=== PATIENT | female | born 1945 | race Caucasian/White ===

== ENCOUNTER 2017-09-08 18:01 | Inpatient (IN) | payer MEDICARE, MEDICAID ==
[~2017-09-08] VITALS: Ht 165.1 cm; Wt 66.5 kg
[~2017-09-08 18:01] MED LIST: NORepinephrine bitartrate 8 MG in NS 250 ML BAG (32 mcg/ml) IV ONE
[2017-09-08] MEDS ORDERED: CefTRIAXone 2gm/NS 100ml IVPB 100 ML IV ONE (18:05)
[2017-09-08] MEDS ORDERED: normal saline 1000ML IV soln IV ONE (18:05)
[2017-09-08] MEDS ORDERED: tranexamic acid inj. 700 MG in normal saline 100ml IV soln 93 ML IV STA (18:07)
[2017-09-08] MEDS ORDERED: fentaNYL/NS/PF 2,500mcg/250ml 250 ML IV PRN (18:15)
[2017-09-08 18:25] LABS: ABG BASE EXCESS -0.6 mmol/L (-2.0-3.0); ABG HCO3 24.5 mmol/L (22.0-26.0); ABG OXYGEN SATURATION 99.4 % (95-98); ABG PCO2 (T) 41.8 mmHg (32.0-45.0); ABG PH (T) 7.385 (7.350-7.450); ABG PO2 (T) 330.5 mmHg (83-108); FMetHb 0.3 % (0.3-1.12); FO2Hb 99.1 % (94-100); MINUTE VOLUME 12 L/min; PEEP 5 cm H2O; RESPIRATORY RATE 15 b/min; RESPIRATORY RATE (OBSERVED) 23 b/min; TIDAL VOLUME 400 mL; TOTAL HEMOGLOBIN 11.5 G/dl (12.0-16.0)
[2017-09-08] MEDS ORDERED: midazolam 2 mg/2 ml injection ONE (18:25)
[2017-09-08] MEDS: midazolam 100mg in NS 100ml 100 ML IV PRN (18:40)
[2017-09-08] MEDS: FENTANYL-0.9 % NACL/PF 100 ML IV PRN (18:40)
[2017-09-08 18:44] LABS: INR 1.1 INR; PARTIAL THROMBOPLASTIN TIME 21 SECONDS (22-32); PROTHROMBIN TIME 11.1 SECONDS (9.0-12.0)
[2017-09-08 18:48] LABS: ALANINE AMINOTRANSFERASE 37 U/L (12-78); ALBUMIN 2.5 G/DL (3.4-5.0); ALKALINE PHOSPHATASE 92 IU/L (46-116); ANION GAP 7 (8-16); ASPARTATE AMINO TRANSFERASE 19 U/L (10-37); BILIRUBIN,TOTAL 1.2 MG/DL (0.1-1.0); BLOOD UREA NITROGEN 48 MG/DL (7-18); BUN/CREATININE RATIO 63.2 (6.6-38.0); CALCIUM 7.9 MG/DL (8.5-10.1); CHLORIDE 110 MMOL/L (99-107); CREATININE 0.76 MG/DL (0.40-0.90); GLUCOSE 140 MG/DL (70-104); POTASSIUM 5.2 MMOL/L (3.5-5.1); SODIUM 145 MMOL/L (135-145); TOTAL CARBON DIOXIDE 28.2 MMOL/L (24-32); eGFR 75 ML/MIN
[2017-09-08 18:53] LABS: BASOPHILS % (AUTO) 0.4 % (0-1); EOSINOPHILS # (AUTO) 0.1 X10'3 (0-0.9); EOSINOPHILS % (AUTO) 0.4 % (0-6); HEMATOCRIT 32.5 % (35.0-45.0); HEMOGLOBIN 10.8 g/dl (12.0-16.0); LYMPHOCYTES # (AUTO) 0.5 X10'3 (1.1-4.8); LYMPHOCYTES % (AUTO) 3.6 % (21-51); MEAN CORPUSCULAR HEMOGLOBIN 31.2 PG (27.0-31.0); MEAN CORPUSCULAR HGB CONC 33.2 % (33.0-36.5); MEAN CORPUSCULAR VOLUME 94.1 FL (78-98); MEAN PLATELET VOLUME 9.4 FL (7.4-10.4); MONOCYTES # (AUTO) 0.5 X10'3 (0-0.9); MONOCYTES % (AUTO) 4.1 % (2-12); NEUTROPHILS # (AUTO) 11.9 X10'3 (1.8-7.7); NEUTROPHILS % (AUTO) 91.5 % (42-75); PLATELET COUNT 607 X10'3 (140-440); RED BLOOD COUNT 3.45 X10'6 (4.20-5.60); RED CELL DISTRIBUTION WIDTH 15.2 % (11.5-14.5)
[2017-09-08 18:59] LABS: MAGNESIUM 1.6 MG/DL (1.5-2.4); TROPONIN I < 0.04 NG/ML (0.0-0.05)
[2017-09-08 19:10] LABS: CLARITY,URINE CLEAR (Clear); COLOR,URINE YELLOW (Yellow); GLUCOSE, URINE NEGATIVE (Neg); KETONES,URINE NEGATIVE (Neg); LEUKOCYTE ESTERASE ,URINE SMALL (Neg); NITRITES, URINE NEGATIVE (Neg); OCCULT BLOOD,URINE SMALL (Neg); PROTEIN,URINE NEGATIVE (Neg); UROBILINOGEN,URINE 0.2 E.U/dL (0.2-1.0)
[2017-09-08 19:18] LABS: UA COLLECTION TYPE FOLEY CATH
[2017-09-08 19:20] LABS: BACTERIA,URINE 4+ /HPF (Neg); MUCUS STRANDS NONE SEEN /LPF (Neg); SQUAMOUS EPITHELIAL CELL,UR NONE SEEN /LPF (FEW)
[2017-09-08] MEDS ORDERED: vancomycin/NS 1 GM ADD-VANTAGE 250 ML IV ONE (19:20)
[2017-09-08] MEDS ORDERED: CefTRIAXone/dextrose 2GM bag 50 ML IV ONE (19:42)
[2017-09-08] MEDS ORDERED: normal saline 1000ML IV soln IVB ONE (20:30)
[2017-09-08 20:34] LABS: NUCLEATED RED BLOOD CELLS 1 /100WBC (0-0); TOTAL CELLS COUNTED 100
[2017-09-08 20:35] LABS: GIANT PLATELET FEW; PLATELET ESTIMATE INCREASED
[2017-09-08] MEDS ORDERED: acetaminophen 325mg tablet PO PRN ×2 (21:00)
[2017-09-08] MEDS ORDERED: morphine 2 MG/ML inj. syringe IV PRN ×2 (21:00)
[2017-09-08] MEDS: K, MAG and/or Phos replacement - Verify level? MC SCH (21:00)
[2017-09-08] MEDS ORDERED: ondansetron/PF 4mg/2ml inj IV PRN (21:00)
[2017-09-08] MEDS ORDERED: potassium Cl 20 mEq SR tablet PO PRN ×2 (21:00)
[2017-09-08 21:14] VITALS: BP 96/43
[2017-09-08 21:29] VITALS: BP 78/37
[2017-09-08] MEDS: piperacillin/tazo 3.375gm/50ml 50 ML IV SCH (21:31)
[2017-09-08] MEDS: pantoprazole 40MG/NS 100ML BAG 100 ML IV SCH (21:31)
[2017-09-08] MEDS ORDERED: tranexamic acid inj. 700 MG in normal saline 100ml IV soln 93 ML IV ONE (21:50)
[2017-09-08] MEDS: NORepinephrine 8mg/ 250ml NS 250 ML IV SCH (21:59)
[2017-09-08 23:15] VITALS: BP 116/58
[2017-09-08 23:30] VITALS: BP 134/64
[2017-09-09] VITALS (28 sets, daily range): BP systolic 84–118; BP diastolic 41–62
[2017-09-09] MEDS: pantoprazole 40MG/NS 100ML BAG 100 ML IV SCH ×6 (00:03→23:24)
[2017-09-09] MEDS: FENTANYL-0.9 % NACL/PF 100 ML IV PRN ×3 (00:03→18:52)
[2017-09-09 01:05] LABS: ABG BASE EXCESS -1.7 mmol/L (-2.0-3.0); ABG HCO3 22.6 mmol/L (22.0-26.0); ABG OXYGEN SATURATION 97.6 % (95-98); ABG PCO2 (T) 35.7 mmHg (32.0-45.0); ABG PH (T) 7.417 (7.350-7.450); ABG PO2 (T) 105.3 mmHg (83-108); FCOHb 0.3 % (0.5-1.5); FMetHb 0.1 % (0.3-1.12); FO2Hb 97.2 % (94-100); MINUTE VOLUME 13 L/min; PATIENT TEMPERATURE 36.4; PEEP 5 cm H2O; RESPIRATORY RATE 20 b/min; RESPIRATORY RATE (OBSERVED) 30 b/min; TIDAL VOLUME 400 mL; TOTAL HEMOGLOBIN 11.4 G/dl (12.0-16.0)
[2017-09-09 01:11] LABS: OXYGEN SATURATION (MIXED VEN) 74.8 % (60-80); PO2 MIXED VENOUS (TEMP COR) 36.5 mmHg (35-46)
[2017-09-09 03:18] LABS: BASOPHILS % (AUTO) 0.3 % (0-1); EOSINOPHILS # (AUTO) 0.2 X10'3 (0-0.9); EOSINOPHILS % (AUTO) 1.8 % (0-6); HEMATOCRIT 35.7 % (35.0-45.0); HEMOGLOBIN 11.9 g/dl (12.0-16.0); LYMPHOCYTES # (AUTO) 0.7 X10'3 (1.1-4.8); LYMPHOCYTES % (AUTO) 6.4 % (21-51); MEAN CORPUSCULAR HEMOGLOBIN 30.8 PG (27.0-31.0); MEAN CORPUSCULAR HGB CONC 33.5 % (33.0-36.5); MEAN PLATELET VOLUME 9.6 FL (7.4-10.4); MONOCYTES # (AUTO) 0.4 X10'3 (0-0.9); MONOCYTES % (AUTO) 3.3 % (2-12); NEUTROPHILS # (AUTO) 9.6 X10'3 (1.8-7.7); NEUTROPHILS % (AUTO) 88.2 % (42-75); PLATELET COUNT 523 X10'3 (140-440); RED BLOOD COUNT 3.88 X10'6 (4.20-5.60); RED CELL DISTRIBUTION WIDTH 16.1 % (11.5-14.5); WHITE BLOOD COUNT 10.8 X10'3 (4.5-11.0)
[2017-09-09 03:35] LABS: ALANINE AMINOTRANSFERASE 31 U/L (12-78); ALBUMIN 2.3 G/DL (3.4-5.0); ALBUMIN/GLOBULIN RATIO 0.9 (1.1-1.5); ALKALINE PHOSPHATASE 93 IU/L (46-116); ANION GAP 9 (8-16); ASPARTATE AMINO TRANSFERASE 19 U/L (10-37); BILIRUBIN,TOTAL 1.3 MG/DL (0.1-1.0); BLOOD UREA NITROGEN 39 MG/DL (7-18); BUN/CREATININE RATIO 79.6 (6.6-38.0); CALCIUM 8.8 MG/DL (8.5-10.1); CHLORIDE 114 MMOL/L (99-107); CREATININE 0.49 MG/DL (0.40-0.90); GLUCOSE 134 MG/DL (70-104); MAGNESIUM 1.7 MG/DL (1.5-2.4); PHOSPHORUS 3.4 MG/DL (2.3-4.5); POTASSIUM 3.9 MMOL/L (3.5-5.1); SODIUM 148 MMOL/L (135-145); TOTAL CARBON DIOXIDE 25.1 MMOL/L (24-32); eGFR > 90 ML/MIN
[2017-09-09] MEDS: normal saline 1000ml 1,000 ML IV SCH ×3 (04:41→16:01)
[2017-09-09] MEDS: midazolam 100mg in NS 100ml 100 ML IV PRN ×3 (06:29→23:24)
[2017-09-09] MEDS: K, MAG and/or Phos replacement - Verify level? MC SCH (07:45)
[2017-09-09] MEDS: piperacillin/tazo 3.375gm/50ml 50 ML IV SCH ×3 (09:20→23:24)
[2017-09-09] MEDS: vancomycin/NS 1 GM ADD-VANTAGE 250 ML IV SCH ×2 (09:20→19:55)
[2017-09-09 09:50] LABS: HEMATOCRIT 37.1 % (35.0-45.0); HEMOGLOBIN 12.2 g/dl (12.0-16.0); MEAN CORPUSCULAR HEMOGLOBIN 30.4 PG (27.0-31.0); MEAN CORPUSCULAR HGB CONC 32.9 % (33.0-36.5); MEAN CORPUSCULAR VOLUME 92.4 FL (78-98); MEAN PLATELET VOLUME 9.3 FL (7.4-10.4); PLATELET COUNT 481 X10'3 (140-440); RED BLOOD COUNT 4.01 X10'6 (4.20-5.60); RED CELL DISTRIBUTION WIDTH 16.5 % (11.5-14.5); WHITE BLOOD COUNT 10.4 X10'3 (4.5-11.0)
[2017-09-09] MEDS ORDERED: normal saline 1000ml 1,000 ML IV ONE (10:45)
[2017-09-09] MEDS ORDERED: OMEP20TA5 PO (12:49)
[2017-09-09] MEDS ORDERED: ONDA4TAB9 PO (12:49)
[2017-09-09] MEDS ORDERED: MIRT7.5T11 PO (12:49)
[2017-09-09] MEDS ORDERED: QUET25TA34 PO (12:49)
[2017-09-09] MEDS ORDERED: LISI40TA4 PO (12:49)
[2017-09-09] MEDS ORDERED: DOCU-20 PO (12:49)
[2017-09-09] MEDS ORDERED: TRAM50TA2 PO (12:49)
[2017-09-09] MEDS ORDERED: BACL10TA PO (12:49)
[2017-09-09] MEDS ORDERED: GABA-532 PO (12:49)
[2017-09-09] MEDS ORDERED: INSU100V30 SQ (14:18)
[2017-09-09] MEDS ORDERED: lasix IV (14:18)
[2017-09-09] MEDS ORDERED: PROP10VI (14:18)
[2017-09-09] MEDS ORDERED: BUDE0.5A11 NEB (14:18)
[2017-09-09] MEDS ORDERED: [UNRECOGNIZED DRUG - CODE] (14:18)
[2017-09-09] MEDS ORDERED: FOLI1TAB16 PO (14:18)
[2017-09-09] MEDS ORDERED: tpn IV (14:18)
[2017-09-09] MEDS ORDERED: ENOX40SY7 SUBCUT (14:18)
[2017-09-09] MEDS ORDERED: protonix IV (14:27)
[2017-09-09] MEDS ORDERED: ONDA4TAB6 IV (14:27)
[2017-09-09] MEDS ORDERED: METO50TA16 PO (14:27)
[2017-09-09] MEDS ORDERED: MULT-227 PO (14:27)
[2017-09-09] MEDS ORDERED: METH125V13 IV (14:27)
[2017-09-09] MEDS ORDERED: IPRA3AMP IH (14:27)
[2017-09-09] MEDS ORDERED: OLAN5TAB3 PO (14:27)
[2017-09-09] MEDS ORDERED: LACTC PO (14:27)
[2017-09-09] MEDS: NORepinephrine 8mg/ 250ml NS 250 ML IV SCH (14:42)
[2017-09-09] MEDS ORDERED: non-formulary drug (Ondansetron Hcl (Zofran) 1 TAB) IV PRN (14:55)
[2017-09-09 15:15] LABS: HEMATOCRIT 35.3 % (35.0-45.0); HEMOGLOBIN 11.7 g/dl (12.0-16.0); MEAN CORPUSCULAR HEMOGLOBIN 30.6 PG (27.0-31.0); MEAN CORPUSCULAR HGB CONC 33.2 % (33.0-36.5); MEAN CORPUSCULAR VOLUME 92.4 FL (78-98); MEAN PLATELET VOLUME 9.2 FL (7.4-10.4); PLATELET COUNT 486 X10'3 (140-440); RED BLOOD COUNT 3.82 X10'6 (4.20-5.60); RED CELL DISTRIBUTION WIDTH 16.6 % (11.5-14.5); WHITE BLOOD COUNT 9.3 X10'3 (4.5-11.0)
[2017-09-09] MEDS ORDERED: ondansetron 4mg rapidly disintigrating tab PO PRN (15:55)
[2017-09-09] MEDS: hydrocortisone sod succ/PF 100mg/2ml inj. IV SCH ×2 (16:50→19:55)
[2017-09-09] MEDS ORDERED: docusate sod 100mg capsule PO SCH (20:00)
[2017-09-09] MEDS ORDERED: OLANZapine 5mg rapidly disint. tablet PO SCH (21:00)
[2017-09-09] MEDS ORDERED: OLANZAPINE 5 MG PO SCH (21:00)
[2017-09-09 22:21] LABS: ANION GAP 7 (8-16); BLOOD UREA NITROGEN 33 MG/DL (7-18); BUN/CREATININE RATIO 63.5 (6.6-38.0); CALCIUM 9.1 MG/DL (8.5-10.1); CHLORIDE 120 MMOL/L (99-107); CREATININE 0.52 MG/DL (0.40-0.90); GLUCOSE 176 MG/DL (70-104); POTASSIUM 3.8 MMOL/L (3.5-5.1); SODIUM 153 MMOL/L (135-145); eGFR > 90 ML/MIN
[2017-09-09] MEDS: sodium chloride 0.45% 1,000 ML IV SCH (23:19)
[2017-09-10] VITALS (23 sets, daily range): BP systolic 96–149; BP diastolic 44–75
[2017-09-10] MEDS: FENTANYL-0.9 % NACL/PF 100 ML IV PRN ×2 (02:08→16:33)
[2017-09-10] MEDS: hydrocortisone sod succ/PF 100mg/2ml inj. IV SCH ×4 (02:08→20:13)
[2017-09-10 03:46] LABS: BASOPHILS % (AUTO) 0.4 % (0-1); EOSINOPHILS # (AUTO) 0.1 X10'3 (0-0.9); EOSINOPHILS % (AUTO) 1.4 % (0-6); HEMATOCRIT 33.2 % (35.0-45.0); LYMPHOCYTES # (AUTO) 0.6 X10'3 (1.1-4.8); LYMPHOCYTES % (AUTO) 6.5 % (21-51); MEAN CORPUSCULAR HEMOGLOBIN 30.7 PG (27.0-31.0); MEAN CORPUSCULAR VOLUME 92.9 FL (78-98); MEAN PLATELET VOLUME 8.6 FL (7.4-10.4); MONOCYTES # (AUTO) 0.3 X10'3 (0-0.9); MONOCYTES % (AUTO) 3.8 % (2-12); NEUTROPHILS # (AUTO) 7.6 X10'3 (1.8-7.7); NEUTROPHILS % (AUTO) 87.9 % (42-75); PLATELET COUNT 455 X10'3 (140-440); RED BLOOD COUNT 3.58 X10'6 (4.20-5.60); RED CELL DISTRIBUTION WIDTH 16.7 % (11.5-14.5); WHITE BLOOD COUNT 8.7 X10'3 (4.5-11.0)
[2017-09-10 04:04] LABS: ALANINE AMINOTRANSFERASE 28 U/L (12-78); ALBUMIN/GLOBULIN RATIO 0.7 (1.1-1.5); ALKALINE PHOSPHATASE 80 IU/L (46-116); ANION GAP 6 (8-16); ASPARTATE AMINO TRANSFERASE 14 U/L (10-37); BILIRUBIN,TOTAL 0.8 MG/DL (0.1-1.0); BLOOD UREA NITROGEN 31 MG/DL (7-18); BUN/CREATININE RATIO 72.1 (6.6-38.0); CALCIUM 9.1 MG/DL (8.5-10.1); CHLORIDE 120 MMOL/L (99-107); CREATININE 0.43 MG/DL (0.40-0.90); GLUCOSE 175 MG/DL (70-104); MAGNESIUM 1.8 MG/DL (1.5-2.4); PHOSPHORUS 3.3 MG/DL (2.3-4.5); POTASSIUM 3.4 MMOL/L (3.5-5.1); SODIUM 152 MMOL/L (135-145); TOTAL CARBON DIOXIDE 25.9 MMOL/L (24-32); TOTAL PROTEIN 4.9 G/DL (6.4-8.2); eGFR > 90 ML/MIN
[2017-09-10 04:11] LABS: ABG OXYGEN SATURATION 95.4 % (95-98); ABG PCO2 (T) 34.9 mmHg (32.0-45.0); ABG PH (T) 7.417 (7.350-7.450); ABG PO2 (T) 79.6 mmHg (83-108); FCOHb 0.3 % (0.5-1.5); FMetHb 0.1 % (0.3-1.12); MINUTE VOLUME 9 L/min; PEEP 5 cm H2O; RESPIRATORY RATE 15 b/min; RESPIRATORY RATE (OBSERVED) 20 b/min; TIDAL VOLUME 464 mL; TOTAL HEMOGLOBIN 12.1 G/dl (12.0-16.0)
[2017-09-10] MEDS: pantoprazole 40MG/NS 100ML BAG 100 ML IV SCH ×4 (05:40→20:13)
[2017-09-10] MEDS: sodium chloride 0.45% 1,000 ML IV SCH ×3 (05:43→18:08)
[2017-09-10] MEDS: K, MAG and/or Phos replacement - Verify level? MC SCH (07:18)
[2017-09-10] MEDS ORDERED: non-formulary drug (Lactobacillus Acidophilus (ACIDOPHILUS capsule) 1 CAP) PO SCH (08:00)
[2017-09-10] MEDS ORDERED: MULTIVITAMINS PO SCH (08:00)
[2017-09-10] MEDS: vancomycin/NS 1 GM ADD-VANTAGE 250 ML IV SCH ×2 (08:19→20:12)
[2017-09-10] MEDS: multivitamins, therapeutics tablet PO SCH (08:19)
[2017-09-10] MEDS: lactobacillus rhamnosus 10,000 MMU CELLS/CAPSULE PO SCH (08:19)
[2017-09-10] MEDS: folic acid 1mg tablet PO SCH (08:19)
[2017-09-10] MEDS: docusate sodium 100mg/10ml UD cup PO SCH ×2 (08:19→20:13)
[2017-09-10 09:29] LABS: HEMATOCRIT 32.9 % (35.0-45.0); HEMOGLOBIN 10.9 g/dl (12.0-16.0); MEAN CORPUSCULAR HEMOGLOBIN 30.6 PG (27.0-31.0); MEAN CORPUSCULAR HGB CONC 33.2 % (33.0-36.5); MEAN CORPUSCULAR VOLUME 92.2 FL (78-98); MEAN PLATELET VOLUME 8.8 FL (7.4-10.4); PLATELET COUNT 446 X10'3 (140-440); RED BLOOD COUNT 3.57 X10'6 (4.20-5.60); RED CELL DISTRIBUTION WIDTH 16.7 % (11.5-14.5); WHITE BLOOD COUNT 7.3 X10'3 (4.5-11.0)
[2017-09-10] MEDS: potassium Cl 40MEQ/250ML bag 250 ML IV SCH (09:51)
[2017-09-10] MEDS: OLANZapine 2.5MG tablet PO SCH ×3 (09:51→20:13)
[2017-09-10] MEDS ORDERED: diatrozoate meglu/diatrozoate sod (37% iodine) 120ML oral solution PO ONE (10:30)
[2017-09-10] MEDS ORDERED: diatr meglu/diatrizoate 30ml oral sol.-(3 dose) bottle PO ONE (10:45)
[2017-09-10 10:49] LABS: C DIFF ANTIGEN NEGATIVE (NEGATIVE); C DIFF SPECIMEN=DIARRHEA? ACCEPTABLE; C DIFFICILE TOXINS A&B NEGATIVE (Neg)
[2017-09-10] MEDS: piperacillin/tazo 3.375gm/50ml 50 ML IV SCH ×2 (11:04→16:32)
[2017-09-10] MEDS ORDERED: VANCOMYCIN LEVEL IV NR (19:30)
[2017-09-11] VITALS (24 sets, daily range): BP systolic 93–162; BP diastolic 46–82
[2017-09-11] MEDS: piperacillin/tazo 3.375gm/50ml 50 ML IV SCH ×3 (00:21→16:00)
[2017-09-11] MEDS: hydrocortisone sod succ/PF 100mg/2ml inj. IV SCH ×4 (02:27→20:31)
[2017-09-11] MEDS: sodium chloride 0.45% 1,000 ML IV SCH ×3 (02:27→22:44)
[2017-09-11] MEDS: pantoprazole 40MG/NS 100ML BAG 100 ML IV SCH ×5 (02:27→20:32)
[2017-09-11] MEDS: FENTANYL-0.9 % NACL/PF 100 ML IV PRN ×3 (02:28→16:47)
[2017-09-11 02:46] LABS: BASOPHILS # (AUTO) 0.1 X10'3 (0-0.2); BASOPHILS % (AUTO) 0.9 % (0-1); EOSINOPHILS % (AUTO) 0 % (0-6); HEMATOCRIT 31.1 % (35.0-45.0); HEMOGLOBIN 10.2 g/dl (12.0-16.0); LYMPHOCYTES # (AUTO) 0.6 X10'3 (1.1-4.8); LYMPHOCYTES % (AUTO) 8.7 % (21-51); MEAN CORPUSCULAR HEMOGLOBIN 30.4 PG (27.0-31.0); MEAN CORPUSCULAR HGB CONC 32.7 % (33.0-36.5); MEAN CORPUSCULAR VOLUME 93.1 FL (78-98); MEAN PLATELET VOLUME 8.8 FL (7.4-10.4); MONOCYTES # (AUTO) 0.3 X10'3 (0-0.9); MONOCYTES % (AUTO) 5.3 % (2-12); NEUTROPHILS # (AUTO) 5.4 X10'3 (1.8-7.7); NEUTROPHILS % (AUTO) 85.1 % (42-75); PLATELET COUNT 394 X10'3 (140-440); RED BLOOD COUNT 3.35 X10'6 (4.20-5.60); RED CELL DISTRIBUTION WIDTH 15.7 % (11.5-14.5); WHITE BLOOD COUNT 6.4 X10'3 (4.5-11.0)
[2017-09-11 02:56] LABS: ABG BASE EXCESS -2.3 mmol/L (-2.0-3.0); ABG HCO3 20.4 mmol/L (22.0-26.0); ABG OXYGEN SATURATION 96.9 % (95-98); ABG PCO2 (T) 27.2 mmHg (32.0-45.0); FCOHb 0.3 % (0.5-1.5); FMetHb 0.3 % (0.3-1.12); FO2Hb 96.3 % (94-100); MINUTE VOLUME 9 L/min; PATIENT TEMPERATURE 36.2; PEEP 5 cm H2O; RESPIRATORY RATE 15 b/min; RESPIRATORY RATE (OBSERVED) 15 b/min; TIDAL VOLUME 542 mL; TOTAL HEMOGLOBIN 10.2 G/dl (12.0-16.0)
[2017-09-11 03:03] LABS: ALANINE AMINOTRANSFERASE 21 U/L (12-78); ALBUMIN 1.7 G/DL (3.4-5.0); ALBUMIN/GLOBULIN RATIO 0.6 (1.1-1.5); ALKALINE PHOSPHATASE 68 IU/L (46-116); ANION GAP 8 (8-16); ASPARTATE AMINO TRANSFERASE 13 U/L (10-37); BILIRUBIN,TOTAL 0.7 MG/DL (0.1-1.0); BLOOD UREA NITROGEN 30 MG/DL (7-18); BUN/CREATININE RATIO 78.9 (6.6-38.0); CHLORIDE 118 MMOL/L (99-107); CREATININE 0.38 MG/DL (0.40-0.90); GLUCOSE 149 MG/DL (70-104); MAGNESIUM 1.7 MG/DL (1.5-2.4); POTASSIUM 3.2 MMOL/L (3.5-5.1); PREALBUMIN 11.7 MG/DL (19-36); SODIUM 150 MMOL/L (135-145); TOTAL CARBON DIOXIDE 24.3 MMOL/L (24-32); TOTAL PROTEIN 4.4 G/DL (6.4-8.2); eGFR > 90 ML/MIN
[2017-09-11] MEDS: vancomycin/NS 1 GM ADD-VANTAGE 250 ML IV SCH (08:00)
[2017-09-11] MEDS: multivitamins, therapeutics tablet PO SCH (08:00)
[2017-09-11] MEDS: OLANZapine 2.5MG tablet PO SCH ×3 (08:00→20:43)
[2017-09-11] MEDS: K, MAG and/or Phos replacement - Verify level? MC SCH (08:00)
[2017-09-11] MEDS: docusate sodium 100mg/10ml UD cup PO SCH ×2 (08:00→20:00)
[2017-09-11] MEDS: lactobacillus rhamnosus 10,000 MMU CELLS/CAPSULE PO SCH (08:01)
[2017-09-11] MEDS: folic acid 1mg tablet PO SCH (08:01)
[2017-09-11 11:45] LABS: OXYGEN SATURATION (MIXED VEN) 89.1 % (60-80)
[2017-09-11] MEDS: vancomycin inj 1,250 MG in normal saline 250ml IV soln 250 ML IV SCH (12:00)
[2017-09-11] MEDS: midazolam 100mg in NS 100ml 100 ML IV PRN ×2 (12:01→20:31)
[2017-09-11] MEDS: ipratropium/albuterol 3ml nebule NEB SCH ×3 (16:00→22:56)
[2017-09-11 20:10] LABS: ABG BASE EXCESS -4.7 mmol/L (-2.0-3.0); ABG HCO3 20.4 mmol/L (22.0-26.0); ABG OXYGEN SATURATION 98.1 % (95-98); ABG PH (T) 7.348 (7.350-7.450); FCOHb 0.3 % (0.5-1.5); FMetHb 0.1 % (0.3-1.12); FO2Hb 97.7 % (94-100); MINUTE VOLUME 14 L/min; PEEP 5 cm H2O; RESPIRATORY RATE (OBSERVED) 48 b/min; TOTAL HEMOGLOBIN 12.6 G/dl (12.0-16.0)
[2017-09-11] MEDS: diatr meglu/diatrizoate 30ml oral sol.-(3 dose) bottle PO SCH (20:43)
[2017-09-11] MEDS ORDERED: potassium Cl 40MEQ/250ML bag 250 ML IV ONE (22:31)
[2017-09-11] MEDS: potassium Cl 40MEQ/250ML bag 250 ML IV SCH (22:42)
[2017-09-12] VITALS (24 sets, daily range): BP systolic 125–180; BP diastolic 59–87
[2017-09-12] MEDS: hydrocortisone sod succ/PF 100mg/2ml inj. IV SCH ×4 (01:57→20:44)
[2017-09-12] MEDS: piperacillin/tazo 3.375gm/50ml 50 ML IV SCH ×3 (01:58→16:18)
[2017-09-12] MEDS: pantoprazole 40MG/NS 100ML BAG 100 ML IV SCH ×5 (01:58→20:45)
[2017-09-12] MEDS: ipratropium/albuterol 3ml nebule NEB SCH ×6 (03:16→23:09)
[2017-09-12 04:25] LABS: BASOPHILS % (AUTO) 0.2 % (0-1); EOSINOPHILS # (AUTO) 0.1 X10'3 (0-0.9); EOSINOPHILS % (AUTO) 1.3 % (0-6); HEMATOCRIT 35.2 % (35.0-45.0); HEMOGLOBIN 11.6 g/dl (12.0-16.0); LYMPHOCYTES # (AUTO) 0.4 X10'3 (1.1-4.8); LYMPHOCYTES % (AUTO) 5.9 % (21-51); MEAN CORPUSCULAR HEMOGLOBIN 30.4 PG (27.0-31.0); MEAN CORPUSCULAR HGB CONC 32.9 % (33.0-36.5); MEAN CORPUSCULAR VOLUME 92.6 FL (78-98); MEAN PLATELET VOLUME 8.3 FL (7.4-10.4); MONOCYTES # (AUTO) 0.2 X10'3 (0-0.9); MONOCYTES % (AUTO) 3.2 % (2-12); NEUTROPHILS # (AUTO) 5.6 X10'3 (1.8-7.7); NEUTROPHILS % (AUTO) 89.4 % (42-75); PLATELET COUNT 392 X10'3 (140-440); RED CELL DISTRIBUTION WIDTH 15.9 % (11.5-14.5); WHITE BLOOD COUNT 6.3 X10'3 (4.5-11.0)
[2017-09-12 04:41] LABS: ALANINE AMINOTRANSFERASE 24 U/L (12-78); ALBUMIN 1.9 G/DL (3.4-5.0); ALBUMIN/GLOBULIN RATIO 0.6 (1.1-1.5); ALKALINE PHOSPHATASE 77 IU/L (46-116); ANION GAP 8 (8-16); ASPARTATE AMINO TRANSFERASE 16 U/L (10-37); BILIRUBIN,TOTAL 0.8 MG/DL (0.1-1.0); BLOOD UREA NITROGEN 24 MG/DL (7-18); CALCIUM 9.1 MG/DL (8.5-10.1); CHLORIDE 114 MMOL/L (99-107); GLUCOSE 130 MG/DL (70-104); MAGNESIUM 1.6 MG/DL (1.5-2.4); PHOSPHORUS 3.6 MG/DL (2.3-4.5); POTASSIUM 3.7 MMOL/L (3.5-5.1); SODIUM 146 MMOL/L (135-145); TOTAL CARBON DIOXIDE 24.4 MMOL/L (24-32); eGFR > 90 ML/MIN
[2017-09-12] MEDS: midazolam 100mg in NS 100ml 100 ML IV PRN (05:04)
[2017-09-12 05:16] LABS: ABG HCO3 21.6 mmol/L (22.0-26.0); ABG OXYGEN SATURATION 96.6 % (95-98); ABG PCO2 (T) 32.9 mmHg (32.0-45.0); ABG PH (T) 7.434 (7.350-7.450); ABG PO2 (T) 90.8 mmHg (83-108); FCOHb 0.3 % (0.5-1.5); FMetHb 0.2 % (0.3-1.12); FO2Hb 96.1 % (94-100); MINUTE VOLUME 8 L/min; PATIENT TEMPERATURE 36.9; PEEP 5 cm H2O; RESPIRATORY RATE 10 b/min; RESPIRATORY RATE (OBSERVED) 17 b/min; TOTAL HEMOGLOBIN 11.6 G/dl (12.0-16.0)
[2017-09-12] MEDS: sodium chloride 0.45% 1,000 ML IV SCH ×2 (06:55→16:16)
[2017-09-12] MEDS: diatr meglu/diatrizoate 30ml oral sol.-(3 dose) bottle PO SCH ×2 (07:00→21:00)
[2017-09-12] MEDS: docusate sodium 100mg/10ml UD cup PO SCH ×2 (08:00→20:00)
[2017-09-12] MEDS: multivitamins, therapeutics tablet PO SCH (08:00)
[2017-09-12] MEDS: lactobacillus rhamnosus 10,000 MMU CELLS/CAPSULE PO SCH (08:00)
[2017-09-12] MEDS: OLANZapine 2.5MG tablet PO SCH ×3 (08:00→20:45)
[2017-09-12] MEDS: folic acid 1mg tablet PO SCH (08:00)
[2017-09-12] MEDS: K, MAG and/or Phos replacement - Verify level? MC SCH (08:00)
[2017-09-12] MEDS: vancomycin inj 1,250 MG in normal saline 250ml IV soln 250 ML IV SCH ×2 (09:00→20:45)
[2017-09-12] MEDS: FENTANYL-0.9 % NACL/PF 100 ML IV PRN ×2 (09:45→23:00)
[2017-09-12] MEDS ORDERED: amiodarone/D5 360MG/200ML BAG 200 ML IV SCH (10:59)
[2017-09-12] MEDS ORDERED: amiodarone 150mg/dext, iso-os 100 ML IV ONE (11:00)
[2017-09-12] MEDS: LORazepam 2 mg/ml vial IV PRN (17:38)
[2017-09-12] MEDS: amiodarone/D5 450MG/250ML BAG 250 ML IV SCH (19:58)
[2017-09-13] VITALS (27 sets, daily range): BP systolic 122–190; BP diastolic 60–108
[2017-09-13] MEDS: hydrocortisone sod succ/PF 100mg/2ml inj. IV SCH ×4 (01:36→20:10)
[2017-09-13] MEDS: piperacillin/tazo 3.375gm/50ml 50 ML IV SCH ×4 (01:36→20:10)
[2017-09-13] MEDS: sodium chloride 0.45% 1,000 ML IV SCH ×3 (01:36→22:14)
[2017-09-13] MEDS: midazolam 100mg in NS 100ml 100 ML IV PRN ×2 (01:38→20:11)
[2017-09-13] MEDS: pantoprazole 40MG/NS 100ML BAG 100 ML IV SCH ×5 (02:34→19:35)
[2017-09-13] MEDS: ipratropium/albuterol 3ml nebule NEB SCH ×6 (03:17→22:55)
[2017-09-13 03:35] LABS: BASOPHILS % (AUTO) 0.1 % (0-1); EOSINOPHILS # (AUTO) 0.1 X10'3 (0-0.9); EOSINOPHILS % (AUTO) 0.9 % (0-6); HEMATOCRIT 32.9 % (35.0-45.0); HEMOGLOBIN 10.9 g/dl (12.0-16.0); LYMPHOCYTES # (AUTO) 0.4 X10'3 (1.1-4.8); LYMPHOCYTES % (AUTO) 7.2 % (21-51); MEAN CORPUSCULAR HEMOGLOBIN 30.4 PG (27.0-31.0); MEAN CORPUSCULAR HGB CONC 33.1 % (33.0-36.5); MEAN PLATELET VOLUME 8.4 FL (7.4-10.4); MONOCYTES # (AUTO) 0.2 X10'3 (0-0.9); MONOCYTES % (AUTO) 3.6 % (2-12); NEUTROPHILS # (AUTO) 5.4 X10'3 (1.8-7.7); NEUTROPHILS % (AUTO) 88.2 % (42-75); PLATELET COUNT 323 X10'3 (140-440); RED BLOOD COUNT 3.57 X10'6 (4.20-5.60); RED CELL DISTRIBUTION WIDTH 15.6 % (11.5-14.5); WHITE BLOOD COUNT 6.2 X10'3 (4.5-11.0)
[2017-09-13 03:50] LABS: ALANINE AMINOTRANSFERASE 39 U/L (12-78); ALBUMIN 1.7 G/DL (3.4-5.0); ALBUMIN/GLOBULIN RATIO 0.6 (1.1-1.5); ALKALINE PHOSPHATASE 67 IU/L (46-116); ANION GAP 6 (8-16); ASPARTATE AMINO TRANSFERASE 28 U/L (10-37); BILIRUBIN,TOTAL 0.7 MG/DL (0.1-1.0); CALCIUM 8.7 MG/DL (8.5-10.1); CHLORIDE 113 MMOL/L (99-107); CREATININE 0.34 MG/DL (0.40-0.90); GLUCOSE 121 MG/DL (70-104); MAGNESIUM 1.6 MG/DL (1.5-2.4); PHOSPHORUS 3.3 MG/DL (2.3-4.5); SODIUM 146 MMOL/L (135-145); TOTAL CARBON DIOXIDE 27.2 MMOL/L (24-32); TOTAL PROTEIN 4.5 G/DL (6.4-8.2); eGFR > 90 ML/MIN
[2017-09-13 03:56] LABS: BLOOD UREA NITROGEN 20 MG/DL (7-18); BUN/CREATININE RATIO 58.8 (6.6-38.0)
[2017-09-13] MEDS ORDERED: potassium Cl 40MEQ/250ML bag 250 ML IV ONE (04:03)
[2017-09-13 04:11] LABS: ABG HCO3 23.1 mmol/L (22.0-26.0); ABG PCO2 (T) 31.9 mmHg (32.0-45.0); ABG PH (T) 7.476 (7.350-7.450); ABG PO2 (T) 76.1 mmHg (83-108); FCOHb 0.3 % (0.5-1.5); FO2Hb 95.7 % (94-100); MINUTE VOLUME 14 L/min; PATIENT TEMPERATURE 36.4; PEEP 5 cm H2O; RESPIRATORY RATE 14 b/min; RESPIRATORY RATE (OBSERVED) 26 b/min; TIDAL VOLUME 450 mL; TOTAL HEMOGLOBIN 12.5 G/dl (12.0-16.0)
[2017-09-13] MEDS ORDERED: VANCOMYCIN LEVEL IV NR (07:30)
[2017-09-13] MEDS: FENTANYL-0.9 % NACL/PF 100 ML IV PRN ×2 (07:58→17:05)
[2017-09-13] MEDS: docusate sodium 100mg/10ml UD cup PO SCH ×2 (08:00→20:00)
[2017-09-13] MEDS: OLANZapine 2.5MG tablet PO SCH ×3 (08:00→21:00)
[2017-09-13] MEDS: multivitamins, therapeutics tablet PO SCH (08:00)
[2017-09-13] MEDS: K, MAG and/or Phos replacement - Verify level? MC SCH (08:00)
[2017-09-13] MEDS: folic acid 1mg tablet PO SCH (08:00)
[2017-09-13] MEDS: lactobacillus rhamnosus 10,000 MMU CELLS/CAPSULE PO SCH (08:00)
[2017-09-13] MEDS ORDERED: ringers solution, lacted 1,000 ML IV SCH (09:43)
[2017-09-13] MEDS ORDERED: ondansetron/PF 4mg/2ml inj IV PRN (09:45)
[2017-09-13] MEDS ORDERED: sevoflurane 250ml liquid IH ONE (09:50)
[2017-09-13] MEDS: LORazepam 2 mg/ml vial IV PRN (12:49)
[2017-09-13] MEDS ORDERED: enalaprilat dihydrate 2.5mg/2ml vial IV SCH (14:05)
[2017-09-13] MEDS: enalaprilat dihydrate 2.5mg/2ml vial IV SCH ×2 (14:29→20:10)
[2017-09-13] MEDS: furosemide 40mg/4ml inj IV SCH ×2 (14:29→16:00)
[2017-09-13] MEDS: esmolol/sodium cl bag 250 ML IV PRN (17:18)
[2017-09-13] MEDS: potassium Cl 40MEQ/250ML bag 250 ML IV PRN ×2 (17:38→23:36)
[2017-09-14] VITALS (24 sets, daily range): BP systolic 101–194; BP diastolic 48–103
[2017-09-14] MEDS: furosemide 40mg/4ml inj IV SCH ×3 (00:08→15:19)
[2017-09-14] MEDS: pantoprazole 40MG/NS 100ML BAG 100 ML IV SCH ×5 (00:12→20:28)
[2017-09-14] MEDS ORDERED: hydrALAZINE 20mg/ml inj. IV ONE (00:25)
[2017-09-14] MEDS: hydrocortisone sod succ/PF 100mg/2ml inj. IV SCH ×4 (01:16→20:28)
[2017-09-14] MEDS: enalaprilat dihydrate 2.5mg/2ml vial IV SCH ×4 (01:16→20:28)
[2017-09-14] MEDS: piperacillin/tazo 3.375gm/50ml 50 ML IV SCH ×3 (01:17→15:19)
[2017-09-14] MEDS: esmolol/sodium cl bag 250 ML IV PRN (01:18)
[2017-09-14] MEDS: potassium Cl 40MEQ/250ML bag 250 ML IV PRN ×4 (02:40→20:29)
[2017-09-14] MEDS: amiodarone/D5 450MG/250ML BAG 250 ML IV SCH ×2 (02:41→18:13)
[2017-09-14] MEDS: ipratropium/albuterol 3ml nebule NEB SCH ×6 (02:47→23:18)
[2017-09-14 03:25] LABS: ABG HCO3 21.5 mmol/L (22.0-26.0); ABG OXYGEN SATURATION 92.9 % (95-98); ABG PCO2 (T) 24.4 mmHg (32.0-45.0); ABG PH (T) 7.562 (7.350-7.450); ABG PO2 (T) 57.4 mmHg (83-108); FCOHb 0.5 % (0.5-1.5); FMetHb 0.3 % (0.3-1.12); FO2Hb 92.2 % (94-100); MINUTE VOLUME 17 L/min; PATIENT TEMPERATURE 36.8; PEEP 5 cm H2O; RESPIRATORY RATE 14 b/min; RESPIRATORY RATE (OBSERVED) 34 b/min; TIDAL VOLUME 450 mL; TOTAL HEMOGLOBIN 14.6 G/dl (12.0-16.0)
[2017-09-14] MEDS: midazolam 100mg in NS 100ml 100 ML IV PRN ×3 (05:16→23:44)
[2017-09-14] MEDS: FENTANYL-0.9 % NACL/PF 100 ML IV PRN ×3 (05:17→23:44)
[2017-09-14] MEDS: multivitamins, therapeutics tablet PO SCH (06:37)
[2017-09-14] MEDS: folic acid 1mg tablet PO SCH (06:37)
[2017-09-14] MEDS: docusate sodium 100mg/10ml UD cup PO SCH ×2 (06:37→20:28)
[2017-09-14] MEDS: OLANZapine 2.5MG tablet PO SCH ×3 (06:37→20:28)
[2017-09-14] MEDS: lactobacillus rhamnosus 10,000 MMU CELLS/CAPSULE PO SCH (06:37)
[2017-09-14 07:49] LABS: BASOPHILS % (AUTO) 0 % (0-1); EOSINOPHILS # (AUTO) 0.1 X10'3 (0-0.9); EOSINOPHILS % (AUTO) 1.6 % (0-6); HEMATOCRIT 36.6 % (35.0-45.0); HEMOGLOBIN 12.1 g/dl (12.0-16.0); LYMPHOCYTES # (AUTO) 0.5 X10'3 (1.1-4.8); LYMPHOCYTES % (AUTO) 6.7 % (21-51); MEAN CORPUSCULAR HEMOGLOBIN 30.5 PG (27.0-31.0); MEAN CORPUSCULAR HGB CONC 33.1 % (33.0-36.5); MEAN CORPUSCULAR VOLUME 92.1 FL (78-98); MEAN PLATELET VOLUME 8.6 FL (7.4-10.4); MONOCYTES # (AUTO) 0.2 X10'3 (0-0.9); MONOCYTES % (AUTO) 2.4 % (2-12); NEUTROPHILS # (AUTO) 7.1 X10'3 (1.8-7.7); NEUTROPHILS % (AUTO) 89.3 % (42-75); PLATELET COUNT 346 X10'3 (140-440); RED BLOOD COUNT 3.97 X10'6 (4.20-5.60); RED CELL DISTRIBUTION WIDTH 15.2 % (11.5-14.5)
[2017-09-14] MEDS: K, MAG and/or Phos replacement - Verify level? MC SCH (08:00)
[2017-09-14 08:05] LABS: ALANINE AMINOTRANSFERASE 45 U/L (12-78); ALBUMIN 1.8 G/DL (3.4-5.0); ALBUMIN/GLOBULIN RATIO 0.6 (1.1-1.5); ALKALINE PHOSPHATASE 72 IU/L (46-116); ANION GAP 7 (8-16); ASPARTATE AMINO TRANSFERASE 30 U/L (10-37); BILIRUBIN,TOTAL 0.7 MG/DL (0.1-1.0); BLOOD UREA NITROGEN 17 MG/DL (7-18); CALCIUM 8.9 MG/DL (8.5-10.1); CHLORIDE 113 MMOL/L (99-107); GLUCOSE 146 MG/DL (70-104); MAGNESIUM 1.5 MG/DL (1.5-2.4); PHOSPHORUS 2.8 MG/DL (2.3-4.5); SODIUM 147 MMOL/L (135-145); TOTAL CARBON DIOXIDE 26.9 MMOL/L (24-32); TOTAL PROTEIN 4.8 G/DL (6.4-8.2); eGFR > 90 ML/MIN
[2017-09-14] MEDS: sodium chloride 0.45% 1,000 ML IV SCH (10:02)
[2017-09-14] MEDS: albumin (human) 25% 100 ML IV solution IV SCH (15:21)
[2017-09-15] VITALS (23 sets, daily range): BP systolic 116–198; BP diastolic 58–98
[2017-09-15] MEDS: furosemide 40mg/4ml inj IV SCH (00:02)
[2017-09-15] MEDS: albumin (human) 25% 100 ML IV solution IV SCH ×4 (00:02→23:26)
[2017-09-15] MEDS: enalaprilat dihydrate 2.5mg/2ml vial IV SCH ×4 (02:53→20:50)
[2017-09-15] MEDS: pantoprazole 40MG/NS 100ML BAG 100 ML IV SCH (02:53)
[2017-09-15] MEDS: hydrocortisone sod succ/PF 100mg/2ml inj. IV SCH (02:53)
[2017-09-15 03:02] LABS: BASOPHILS % (AUTO) 0.3 % (0-1); EOSINOPHILS # (AUTO) 0.1 X10'3 (0-0.9); HEMATOCRIT 30.9 % (35.0-45.0); HEMOGLOBIN 10.3 g/dl (12.0-16.0); LYMPHOCYTES # (AUTO) 0.5 X10'3 (1.1-4.8); LYMPHOCYTES % (AUTO) 5.8 % (21-51); MEAN CORPUSCULAR HEMOGLOBIN 30.6 PG (27.0-31.0); MEAN CORPUSCULAR HGB CONC 33.2 % (33.0-36.5); MEAN CORPUSCULAR VOLUME 92.1 FL (78-98); MEAN PLATELET VOLUME 8.9 FL (7.4-10.4); MONOCYTES # (AUTO) 0.2 X10'3 (0-0.9); MONOCYTES % (AUTO) 2.6 % (2-12); NEUTROPHILS # (AUTO) 7.7 X10'3 (1.8-7.7); NEUTROPHILS % (AUTO) 90.3 % (42-75); PLATELET COUNT 270 X10'3 (140-440); RED BLOOD COUNT 3.36 X10'6 (4.20-5.60); RED CELL DISTRIBUTION WIDTH 15.2 % (11.5-14.5); WHITE BLOOD COUNT 8.6 X10'3 (4.5-11.0)
[2017-09-15 03:16] LABS: PLATELET ESTIMATE NORMAL
[2017-09-15 03:17] LABS: ANISOCYTOSIS 1+
[2017-09-15 03:22] LABS: ALANINE AMINOTRANSFERASE 48 U/L (12-78); ALBUMIN 2.9 G/DL (3.4-5.0); ALBUMIN/GLOBULIN RATIO 1.1 (1.1-1.5); ALKALINE PHOSPHATASE 63 IU/L (46-116); ANION GAP 7 (8-16); ASPARTATE AMINO TRANSFERASE 24 U/L (10-37); BILIRUBIN,TOTAL 0.6 MG/DL (0.1-1.0); BLOOD UREA NITROGEN 18 MG/DL (7-18); BUN/CREATININE RATIO 28.1 (6.6-38.0); CALCIUM 9.3 MG/DL (8.5-10.1); CHLORIDE 113 MMOL/L (99-107); CREATININE 0.64 MG/DL (0.40-0.90); GLUCOSE 173 MG/DL (70-104); MAGNESIUM 1.6 MG/DL (1.5-2.4); PHOSPHORUS 2.9 MG/DL (2.3-4.5); SODIUM 151 MMOL/L (135-145); TOTAL CARBON DIOXIDE 31.4 MMOL/L (24-32); TOTAL PROTEIN 5.5 G/DL (6.4-8.2); eGFR > 90 ML/MIN
[2017-09-15 03:23] LABS: POTASSIUM 2.8 MMOL/L (3.5-5.1)
[2017-09-15] MEDS: ipratropium/albuterol 3ml nebule NEB SCH ×7 (03:23→23:05)
[2017-09-15 03:45] LABS: ABG BASE EXCESS 3.6 mmol/L (-2.0-3.0); ABG HCO3 26.2 mmol/L (22.0-26.0); ABG OXYGEN SATURATION 95.2 % (95-98); ABG PCO2 (T) 32.3 mmHg (32.0-45.0); ABG PH (T) 7.527 (7.350-7.450); ALLEN'S TEST Positive; FCOHb 0.3 % (0.5-1.5); FO2Hb 94.9 % (94-100); MINUTE VOLUME 15 L/min; PATIENT TEMPERATURE 36.7; PEEP 5 cm H2O; RESPIRATORY RATE 14 b/min; RESPIRATORY RATE (OBSERVED) 24 b/min; TIDAL VOLUME 450 mL; TOTAL HEMOGLOBIN 11.2 G/dl (12.0-16.0)
[2017-09-15] MEDS ORDERED: potassium Cl 40MEQ/250ML bag 500 ML IV ONE (03:58)
[2017-09-15] MEDS: potassium Cl 40MEQ/250ML bag 250 ML IV SCH (06:07)
[2017-09-15] MEDS: Potassium Cl inj 40 MEQ in sodium chloride 0.45% 980 ML IV SCH ×2 (07:59→16:06)
[2017-09-15] MEDS ORDERED: cefTRIAXone 1g/NS 100ml IVPB 100 ML IV ONE (08:00)
[2017-09-15] MEDS: K, MAG and/or Phos replacement - Verify level? MC SCH (08:00)
[2017-09-15] MEDS ORDERED: pantoprazole 40MG/NS 100ML BAG 100 ML IV SCH (08:00)
[2017-09-15] MEDS: multivitamins, therapeutics tablet PO SCH (08:01)
[2017-09-15] MEDS: LACTOBACILLUS RHAMNOSUS GG 15 billion unit sprinkle caps PO SCH (08:01)
[2017-09-15] MEDS: docusate sodium 100mg/10ml UD cup PO SCH ×2 (08:01→20:00)
[2017-09-15] MEDS: folic acid 1mg tablet PO SCH (08:01)
[2017-09-15] MEDS: amiodarone/D5 450MG/250ML BAG 250 ML IV SCH (08:05)
[2017-09-15] MEDS: midazolam 100mg in NS 100ml 100 ML IV PRN (09:49)
[2017-09-15] MEDS: FENTANYL-0.9 % NACL/PF 100 ML IV PRN ×3 (09:51→23:19)
[2017-09-15] MEDS: pantoprazole 40 MG vial IV SCH (12:45)
[2017-09-15] MEDS: esmolol/sodium cl bag 250 ML IV PRN ×2 (15:29→16:21)
[2017-09-15] MEDS: dexmedetomidin/NS 400mcg/100ml 100 ML IV SCH (16:38)
[2017-09-15] MEDS: methylnaltrexone br 12mg/0.6ml inj***SubQ only SQ SCH (20:48)
[2017-09-15] MEDS: amiodarone 200mg tablet PO SCH (20:50)
[2017-09-16] VITALS (24 sets, daily range): BP systolic 104–186; BP diastolic 56–103
[2017-09-16] MEDS: Potassium Cl inj 40 MEQ in sodium chloride 0.45% 980 ML IV SCH ×2 (01:44→12:25)
[2017-09-16] MEDS: enalaprilat dihydrate 2.5mg/2ml vial IV SCH ×4 (01:44→20:30)
[2017-09-16 02:32] LABS: BASOPHILS % (AUTO) 0.1 % (0-1); EOSINOPHILS # (AUTO) 0.1 X10'3 (0-0.9); EOSINOPHILS % (AUTO) 1.5 % (0-6); HEMATOCRIT 28.4 % (35.0-45.0); HEMOGLOBIN 9.5 g/dl (12.0-16.0); LYMPHOCYTES # (AUTO) 0.7 X10'3 (1.1-4.8); LYMPHOCYTES % (AUTO) 7.5 % (21-51); MEAN CORPUSCULAR HEMOGLOBIN 30.8 PG (27.0-31.0); MEAN CORPUSCULAR HGB CONC 33.3 % (33.0-36.5); MEAN CORPUSCULAR VOLUME 92.6 FL (78-98); MEAN PLATELET VOLUME 9.2 FL (7.4-10.4); MONOCYTES # (AUTO) 0.2 X10'3 (0-0.9); MONOCYTES % (AUTO) 1.7 % (2-12); NEUTROPHILS # (AUTO) 8.4 X10'3 (1.8-7.7); NEUTROPHILS % (AUTO) 89.2 % (42-75); PLATELET COUNT 245 X10'3 (140-440); RED BLOOD COUNT 3.07 X10'6 (4.20-5.60); RED CELL DISTRIBUTION WIDTH 15.4 % (11.5-14.5); WHITE BLOOD COUNT 9.4 X10'3 (4.5-11.0)
[2017-09-16] MEDS: midazolam 100mg in NS 100ml 100 ML IV PRN (02:47)
[2017-09-16 02:48] LABS: ALANINE AMINOTRANSFERASE 40 U/L (12-78); ALBUMIN 3.6 G/DL (3.4-5.0); ALBUMIN/GLOBULIN RATIO 1.6 (1.1-1.5); ALKALINE PHOSPHATASE 57 IU/L (46-116); ANION GAP 6 (8-16); ASPARTATE AMINO TRANSFERASE 22 U/L (10-37); BILIRUBIN,TOTAL 0.6 MG/DL (0.1-1.0); BLOOD UREA NITROGEN 20 MG/DL (7-18); BUN/CREATININE RATIO 46.5 (6.6-38.0); CALCIUM 9.5 MG/DL (8.5-10.1); CHLORIDE 114 MMOL/L (99-107); CREATININE 0.43 MG/DL (0.40-0.90); GLUCOSE 106 MG/DL (70-104); MAGNESIUM 1.4 MG/DL (1.5-2.4); PHOSPHORUS 2.3 MG/DL (2.3-4.5); POTASSIUM 3.2 MMOL/L (3.5-5.1); SODIUM 150 MMOL/L (135-145); TOTAL CARBON DIOXIDE 30.3 MMOL/L (24-32); TOTAL PROTEIN 5.8 G/DL (6.4-8.2); eGFR > 90 ML/MIN
[2017-09-16] MEDS: ipratropium/albuterol 3ml nebule NEB SCH ×5 (03:14→19:07)
[2017-09-16 03:31] LABS: ABG BASE EXCESS 0.6 mmol/L (-2.0-3.0); ABG OXYGEN SATURATION 92.4 % (95-98); ABG PCO2 (T) 29.4 mmHg (32.0-45.0); ABG PH (T) 7.511 (7.350-7.450); ABG PO2 (T) 63.8 mmHg (83-108); ALLEN'S TEST Positive; FCOHb 0.3 % (0.5-1.5); FMetHb 0.3 % (0.3-1.12); FO2Hb 91.8 % (94-100); MINUTE VOLUME 13 L/min; PEEP 5 cm H2O; RESPIRATORY RATE 14 b/min; RESPIRATORY RATE (OBSERVED) 26 b/min; TIDAL VOLUME 450 mL; TOTAL HEMOGLOBIN 10.1 G/dl (12.0-16.0)
[2017-09-16] MEDS ORDERED: potassium Cl 40MEQ/250ML bag 250 ML IV ONE (04:55)
[2017-09-16] MEDS: LACTOBACILLUS RHAMNOSUS GG 15 billion unit sprinkle caps PO SCH (07:35)
[2017-09-16] MEDS: multivitamins, therapeutics tablet PO SCH (07:35)
[2017-09-16] MEDS: folic acid 1mg tablet PO SCH (07:35)
[2017-09-16] MEDS: amiodarone 200mg tablet PO SCH ×2 (07:35→20:30)
[2017-09-16] MEDS: pantoprazole 40 MG vial IV SCH (07:35)
[2017-09-16] MEDS: albumin (human) 25% 100 ML IV solution IV SCH (07:36)
[2017-09-16] MEDS: cefTRIAXone 1g/NS 100ml IVPB 100 ML IV SCH (07:37)
[2017-09-16] MEDS: FENTANYL-0.9 % NACL/PF 100 ML IV PRN ×3 (07:47→19:38)
[2017-09-16] MEDS: docusate sodium 100mg/10ml UD cup PO SCH ×2 (07:51→20:00)
[2017-09-16] MEDS: K, MAG and/or Phos replacement - Verify level? MC SCH (07:55)
[2017-09-16] MEDS ORDERED: dextrose 50%-water 50ml dispensing syringe IV ONE ×2 (09:35→09:36)
[2017-09-16] MEDS ORDERED: dextrose 50%-water 50ml dispensing syringe IV PRN ×2 (09:35)
[2017-09-16] MEDS: dexmedetomidin/NS 400mcg/100ml 100 ML IV SCH ×2 (10:21→19:39)
[2017-09-16] MEDS ORDERED: sodium phosphate inj. 15 MMOL in dextrose 5%-water 150 ML IV PRN (10:24)
[2017-09-16] MEDS ORDERED: sodium phosphate inj. 30 MMOL in dextrose 5%-water 250 ML IV PRN (10:24)
[2017-09-16] MEDS ORDERED: magnesium 4gm in 100ml NS 100 ML IV PRN (10:55)
[2017-09-16] MEDS: magnesium 2GM in 50ml NS 50 ML IV PRN (11:17)
[2017-09-16] MEDS: esmolol/sodium cl bag 250 ML IV PRN (16:48)
[2017-09-17] VITALS (22 sets, daily range): BP systolic 107–192; BP diastolic 61–107
[2017-09-17] MEDS: Potassium Cl inj 40 MEQ in sodium chloride 0.45% 980 ML IV SCH ×4 (00:30→21:54)
[2017-09-17] MEDS: esmolol/sodium cl bag 250 ML IV PRN ×6 (00:30→21:19)
[2017-09-17] MEDS: FENTANYL-0.9 % NACL/PF 100 ML IV PRN ×3 (00:30→19:56)
[2017-09-17] MEDS: ipratropium/albuterol 3ml nebule NEB SCH ×6 (03:34→22:26)
[2017-09-17 03:35] LABS: BASOPHILS % (AUTO) 0 % (0-1); EOSINOPHILS # (AUTO) 0.3 X10'3 (0-0.9); EOSINOPHILS % (AUTO) 1.9 % (0-6); HEMATOCRIT 32.4 % (35.0-45.0); HEMOGLOBIN 10.7 g/dl (12.0-16.0); LYMPHOCYTES # (AUTO) 0.8 X10'3 (1.1-4.8); LYMPHOCYTES % (AUTO) 4.2 % (21-51); MEAN CORPUSCULAR HEMOGLOBIN 30.7 PG (27.0-31.0); MEAN CORPUSCULAR HGB CONC 33.1 % (33.0-36.5); MEAN CORPUSCULAR VOLUME 92.7 FL (78-98); MEAN PLATELET VOLUME 9.2 FL (7.4-10.4); MONOCYTES # (AUTO) 0.1 X10'3 (0-0.9); MONOCYTES % (AUTO) 0.4 % (2-12); NEUTROPHILS # (AUTO) 17.2 X10'3 (1.8-7.7); NEUTROPHILS % (AUTO) 93.5 % (42-75); PLATELET COUNT 241 X10'3 (140-440); RED CELL DISTRIBUTION WIDTH 15.4 % (11.5-14.5); WHITE BLOOD COUNT 18.4 X10'3 (4.5-11.0)
[2017-09-17 04:10] LABS: ABG BASE EXCESS -2.1 mmol/L (-2.0-3.0); ABG HCO3 20.1 mmol/L (22.0-26.0); ABG OXYGEN SATURATION 91.7 % (95-98); ABG PCO2 (T) 26.7 mmHg (32.0-45.0); ABG PH (T) 7.494 (7.350-7.450); ALLEN'S TEST Positive; FCOHb 0.2 % (0.5-1.5); FMetHb 0.3 % (0.3-1.12); FO2Hb 91.2 % (94-100); MINUTE VOLUME 14 L/min; PEEP 5 cm H2O; RESPIRATORY RATE 14 b/min; RESPIRATORY RATE (OBSERVED) 27 b/min; TIDAL VOLUME 450 mL; TOTAL HEMOGLOBIN 11.3 G/dl (12.0-16.0)
[2017-09-17 04:16] LABS: ALANINE AMINOTRANSFERASE 49 U/L (12-78); ALBUMIN 3.3 G/DL (3.4-5.0); ALBUMIN/GLOBULIN RATIO 1.3 (1.1-1.5); ALKALINE PHOSPHATASE 68 IU/L (46-116); ANION GAP 6 (8-16); ASPARTATE AMINO TRANSFERASE 22 U/L (10-37); BILIRUBIN,TOTAL 0.7 MG/DL (0.1-1.0); BLOOD UREA NITROGEN 18 MG/DL (7-18); BUN/CREATININE RATIO 46.2 (6.6-38.0); CALCIUM 8.9 MG/DL (8.5-10.1); CHLORIDE 110 MMOL/L (99-107); CREATININE 0.39 MG/DL (0.40-0.90); GLUCOSE 129 MG/DL (70-104); MAGNESIUM 1.6 MG/DL (1.5-2.4); PHOSPHORUS 3.1 MG/DL (2.3-4.5); POTASSIUM 3.6 MMOL/L (3.5-5.1); SODIUM 143 MMOL/L (135-145); TOTAL CARBON DIOXIDE 26.8 MMOL/L (24-32); TOTAL PROTEIN 5.8 G/DL (6.4-8.2); eGFR > 90 ML/MIN
[2017-09-17] MEDS: enalaprilat dihydrate 2.5mg/2ml vial IV SCH ×4 (04:28→19:57)
[2017-09-17] MEDS: dexmedetomidin/NS 400mcg/100ml 100 ML IV SCH ×2 (04:28→07:25)
[2017-09-17 04:30] LABS: ANISOCYTOSIS 1+; PLATELET ESTIMATE NORMAL; TOTAL CELLS COUNTED 100
[2017-09-17] MEDS: K, MAG and/or Phos replacement - Verify level? MC SCH (08:00)
[2017-09-17] MEDS: methylnaltrexone br 12mg/0.6ml inj***SubQ only SQ SCH (08:00)
[2017-09-17] MEDS: docusate sodium 100mg/10ml UD cup PO SCH ×2 (08:00→19:57)
[2017-09-17] MEDS: multivitamins, therapeutics tablet PO SCH (10:08)
[2017-09-17] MEDS: folic acid 1mg tablet PO SCH (10:08)
[2017-09-17] MEDS: amiodarone 200mg tablet PO SCH ×2 (10:08→19:57)
[2017-09-17] MEDS: LACTOBACILLUS RHAMNOSUS GG 15 billion unit sprinkle caps PO SCH (10:08)
[2017-09-17] MEDS: cefTRIAXone 1g/NS 100ml IVPB 100 ML IV SCH (10:09)
[2017-09-17] MEDS: pantoprazole 40 MG vial IV SCH (10:09)
[2017-09-17] MEDS: niCARDipine/sod cl 20mg/200ml 200 ML IV SCH ×3 (12:50→20:34)
[2017-09-18] VITALS (24 sets, daily range): BP systolic 85–138; BP diastolic 50–95
[2017-09-18] MEDS: niCARDipine/sod cl 20mg/200ml 200 ML IV SCH (00:47)
[2017-09-18] MEDS: midazolam 100mg in NS 100ml 100 ML IV PRN (00:48)
[2017-09-18] MEDS: FENTANYL-0.9 % NACL/PF 100 ML IV PRN ×3 (00:48→21:06)
[2017-09-18] MEDS: ipratropium/albuterol 3ml nebule NEB SCH ×6 (02:23→22:40)
[2017-09-18 02:35] LABS: ABG BASE EXCESS -2.4 mmol/L (-2.0-3.0); ABG HCO3 19.6 mmol/L (22.0-26.0); ABG OXYGEN SATURATION 94.2 % (95-98); ABG PCO2 (T) 26.5 mmHg (32.0-45.0); ABG PH (T) 7.486 (7.350-7.450); ABG PO2 (T) 68.5 mmHg (83-108); ALLEN'S TEST Positive; FCOHb 0.6 % (0.5-1.5); FMetHb 0.3 % (0.3-1.12); FO2Hb 93.4 % (94-100); MINUTE VOLUME 19 L/min; PEEP 5 cm H2O; RESPIRATORY RATE 14 b/min; RESPIRATORY RATE (OBSERVED) 36 b/min; TIDAL VOLUME 450 mL
[2017-09-18 02:43] LABS: BASOPHILS % (AUTO) 0 % (0-1); EOSINOPHILS % (AUTO) 0 % (0-6); HEMATOCRIT 38.2 % (35.0-45.0); HEMOGLOBIN 12.8 g/dl (12.0-16.0); LYMPHOCYTES # (AUTO) 0.7 X10'3 (1.1-4.8); MEAN CORPUSCULAR HEMOGLOBIN 30.7 PG (27.0-31.0); MEAN CORPUSCULAR HGB CONC 33.5 % (33.0-36.5); MEAN CORPUSCULAR VOLUME 91.7 FL (78-98); MEAN PLATELET VOLUME 9.1 FL (7.4-10.4); MONOCYTES # (AUTO) 0.2 X10'3 (0-0.9); MONOCYTES % (AUTO) 0.8 % (2-12); NEUTROPHILS % (AUTO) 96.2 % (42-75); PLATELET COUNT 242 X10'3 (140-440); RED BLOOD COUNT 4.16 X10'6 (4.20-5.60); RED CELL DISTRIBUTION WIDTH 15.5 % (11.5-14.5)
[2017-09-18 03:11] LABS: ALANINE AMINOTRANSFERASE 50 U/L (12-78); ALBUMIN 2.7 G/DL (3.4-5.0); ALBUMIN/GLOBULIN RATIO 0.9 (1.1-1.5); ALKALINE PHOSPHATASE 94 IU/L (46-116); ANION GAP 12 (8-16); ASPARTATE AMINO TRANSFERASE 24 U/L (10-37); BLOOD UREA NITROGEN 16 MG/DL (7-18); CALCIUM 8.8 MG/DL (8.5-10.1); CHLORIDE 105 MMOL/L (99-107); CREATININE 0.39 MG/DL (0.40-0.90); GLUCOSE 174 MG/DL (70-104); MAGNESIUM 1.4 MG/DL (1.5-2.4); PHOSPHORUS 2.3 MG/DL (2.3-4.5); SODIUM 141 MMOL/L (135-145); TOTAL CARBON DIOXIDE 24.2 MMOL/L (24-32); TOTAL PROTEIN 5.7 G/DL (6.4-8.2); eGFR > 90 ML/MIN
[2017-09-18 03:14] LABS: POTASSIUM 2.9 MMOL/L (3.5-5.1)
[2017-09-18] MEDS: enalaprilat dihydrate 2.5mg/2ml vial IV SCH ×4 (03:15→20:00)
[2017-09-18] MEDS ORDERED: potassium Cl 40MEQ/250ML bag 500 ML IV ONE (03:31)
[2017-09-18] MEDS: potassium Cl 40MEQ/250ML bag 250 ML IV PRN ×2 (03:42→05:59)
[2017-09-18] MEDS ORDERED: piperacillin/tazo 3.375gm/50ml 50 ML IV STA (03:49)
[2017-09-18] MEDS ORDERED: metroNIDAZOLE-Flagyl 500mg/NS 100 ML IV STA (03:49)
[2017-09-18] MEDS ORDERED: piperacillin/tazo 3.375gm/50ml 50 ML IV ONE (04:39)
[2017-09-18 05:49] LABS: ANISOCYTOSIS 1+; PLATELET ESTIMATE NORMAL; TOTAL CELLS COUNTED 100; TOXIC GRANULATION 1+
[2017-09-18] MEDS: docusate sodium 100mg/10ml UD cup PO SCH ×2 (07:28→21:06)
[2017-09-18] MEDS: amiodarone 200mg tablet PO SCH ×2 (07:28→20:00)
[2017-09-18] MEDS: LACTOBACILLUS RHAMNOSUS GG 15 billion unit sprinkle caps PO SCH (07:28)
[2017-09-18] MEDS: folic acid 1mg tablet PO SCH (07:29)
[2017-09-18] MEDS: multivitamins, therapeutics tablet PO SCH (07:29)
[2017-09-18] MEDS: K, MAG and/or Phos replacement - Verify level? MC SCH (08:00)
[2017-09-18] MEDS: piperacillin/tazo 3.375gm/50ml 50 ML IV SCH ×3 (08:25→21:06)
[2017-09-18] MEDS: magnesium 2GM in 50ml NS 50 ML IV PRN (08:26)
[2017-09-18] MEDS ORDERED: diatrozoate meglu/diatrozoate sod (37% iodine) 120ML oral solution ONE ×8 (09:19→10:43)
[2017-09-18] MEDS: pantoprazole 40 MG vial IV SCH (09:31)
[2017-09-18] MEDS: metroNIDAZOLE-Flagyl 500mg/NS 100 ML IV SCH ×2 (09:31→16:11)
[2017-09-18] MEDS ORDERED: diatrizoate meglumine 300mg/ml (30%) 300ml UR ONE (10:41)
[2017-09-18 13:45] LABS: MAGNESIUM 2.5 MG/DL (1.5-2.4); POTASSIUM 3.7 MMOL/L (3.5-5.1)
[2017-09-18] MEDS: Potassium Cl inj 40 MEQ in sodium chloride 0.45% 980 ML IV SCH (14:35)
[2017-09-19] VITALS (22 sets, daily range): BP systolic 80–146; BP diastolic 49–103
[2017-09-19] MEDS: metroNIDAZOLE-Flagyl 500mg/NS 100 ML IV SCH ×3 (00:19→15:46)
[2017-09-19] MEDS: midazolam 100mg in NS 100ml 100 ML IV PRN (00:54)
[2017-09-19] MEDS: NORepinephrine 8mg/ 250ml NS 250 ML IV SCH ×2 (00:56→04:49)
[2017-09-19] MEDS ORDERED: nystatin 500,000 unit/5ML UD oral suspension PO ONE (01:11)
[2017-09-19] MEDS: enalaprilat dihydrate 2.5mg/2ml vial IV SCH ×4 (02:00→19:18)
[2017-09-19] MEDS: piperacillin/tazo 3.375gm/50ml 50 ML IV SCH ×4 (02:12→19:18)
[2017-09-19] MEDS: Potassium Cl inj 40 MEQ in sodium chloride 0.45% 980 ML IV SCH ×3 (02:12→19:18)
[2017-09-19] MEDS: FENTANYL-0.9 % NACL/PF 100 ML IV PRN ×3 (02:13→10:59)
[2017-09-19] MEDS: ipratropium/albuterol 3ml nebule NEB SCH ×5 (02:40→18:35)
[2017-09-19 02:56] LABS: BASOPHILS % (AUTO) 0.2 % (0-1); EOSINOPHILS # (AUTO) 0.2 X10'3 (0-0.9); EOSINOPHILS % (AUTO) 1.4 % (0-6); HEMATOCRIT 32.7 % (35.0-45.0); HEMOGLOBIN 10.9 g/dl (12.0-16.0); LYMPHOCYTES # (AUTO) 0.6 X10'3 (1.1-4.8); LYMPHOCYTES % (AUTO) 4.5 % (21-51); MEAN CORPUSCULAR HEMOGLOBIN 30.8 PG (27.0-31.0); MEAN CORPUSCULAR HGB CONC 33.3 % (33.0-36.5); MEAN CORPUSCULAR VOLUME 92.5 FL (78-98); MEAN PLATELET VOLUME 9.6 FL (7.4-10.4); MONOCYTES # (AUTO) 0.4 X10'3 (0-0.9); MONOCYTES % (AUTO) 2.7 % (2-12); NEUTROPHILS # (AUTO) 12.1 X10'3 (1.8-7.7); NEUTROPHILS % (AUTO) 91.2 % (42-75); PLATELET COUNT 198 X10'3 (140-440); RED BLOOD COUNT 3.54 X10'6 (4.20-5.60); WHITE BLOOD COUNT 13.2 X10'3 (4.5-11.0)
[2017-09-19 03:15] LABS: ALANINE AMINOTRANSFERASE 39 U/L (12-78); ALBUMIN/GLOBULIN RATIO 0.7 (1.1-1.5); ALKALINE PHOSPHATASE 67 IU/L (46-116); ANION GAP 9 (8-16); ASPARTATE AMINO TRANSFERASE 21 U/L (10-37); BILIRUBIN,TOTAL 0.9 MG/DL (0.1-1.0); BLOOD UREA NITROGEN 22 MG/DL (7-18); CALCIUM 8.1 MG/DL (8.5-10.1); CHLORIDE 111 MMOL/L (99-107); GLUCOSE 114 MG/DL (70-104); PHOSPHORUS 2.4 MG/DL (2.3-4.5); POTASSIUM 3.1 MMOL/L (3.5-5.1); SODIUM 144 MMOL/L (135-145); TOTAL CARBON DIOXIDE 24.4 MMOL/L (24-32); TOTAL PROTEIN 4.7 G/DL (6.4-8.2); eGFR > 90 ML/MIN
[2017-09-19 04:16] LABS: ABG BASE EXCESS -2.2 mmol/L (-2.0-3.0); ABG HCO3 20.6 mmol/L (22.0-26.0); ABG PH (T) 7.469 (7.350-7.450); ABG PO2 (T) 90.8 mmHg (83-108); ALLEN'S TEST Positive; FCOHb 0.3 % (0.5-1.5); FMetHb 0.2 % (0.3-1.12); FO2Hb 96.5 % (94-100); MINUTE VOLUME 14 L/min; PATIENT TEMPERATURE 36.9; PEEP 5 cm H2O; RESPIRATORY RATE 14 b/min; RESPIRATORY RATE (OBSERVED) 27 b/min; TIDAL VOLUME 450 mL; TOTAL HEMOGLOBIN 11.3 G/dl (12.0-16.0)
[2017-09-19] MEDS ORDERED: potassium Cl 40MEQ/250ML bag 250 ML IV ONE (04:44)
[2017-09-19] MEDS: potassium Cl 40MEQ/250ML bag 250 ML IV SCH (04:48)
[2017-09-19] MEDS: LACTOBACILLUS RHAMNOSUS GG 15 billion unit sprinkle caps PO SCH (07:30)
[2017-09-19] MEDS: K, MAG and/or Phos replacement - Verify level? MC SCH (07:35)
[2017-09-19] MEDS: docusate sodium 100mg/10ml UD cup PO SCH ×2 (07:35→19:18)
[2017-09-19] MEDS: methylnaltrexone br 12mg/0.6ml inj***SubQ only SQ SCH (07:36)
[2017-09-19] MEDS: pantoprazole 40 MG vial IV SCH (07:42)
[2017-09-19] MEDS: nystatin 500,000 unit/5ML UD oral suspension PO SCH ×2 (07:42→13:01)
[2017-09-19] MEDS: amiodarone 200mg tablet PO SCH ×2 (07:42→19:19)
[2017-09-19] MEDS: folic acid 1mg tablet PO SCH (07:43)
[2017-09-19] MEDS: multivitamins, therapeutics tablet PO SCH (07:43)
[2017-09-19] MEDS ORDERED: Dextrose 10%-water IV solution 1,000 ML IV PRN (14:04)
[2017-09-19] MEDS ORDERED: magnesium Cl slow-release 64mg tablet PO PRN (14:05)
[2017-09-19] MEDS ORDERED: magnesium 2GM in 50ml NS 50 ML IV PRN (14:05)
[2017-09-19] MEDS ORDERED: magnesium 4gm in 100ml NS 100 ML IV PRN (14:05)
[2017-09-19] MEDS ORDERED: fat emulsion IV 100 ML, MVI, adult No.4 with vit. K 10 ML, Trace element-5 inj. 1 ML in... IV SCH ×4 (14:30)
[2017-09-19 15:58] LABS: ALANINE AMINOTRANSFERASE 38 U/L (12-78); ALBUMIN/GLOBULIN RATIO 0.7 (1.1-1.5); ALKALINE PHOSPHATASE 69 IU/L (46-116); ANION GAP 8 (8-16); ASPARTATE AMINO TRANSFERASE 16 U/L (10-37); BILIRUBIN,TOTAL 0.8 MG/DL (0.1-1.0); BLOOD UREA NITROGEN 19 MG/DL (7-18); BUN/CREATININE RATIO 59.4 (6.6-38.0); CALCIUM 8.3 MG/DL (8.5-10.1); CHLORIDE 111 MMOL/L (99-107); CREATININE 0.32 MG/DL (0.40-0.90); GLUCOSE 103 MG/DL (70-104); MAGNESIUM 1.6 MG/DL (1.5-2.4); PHOSPHORUS 2.1 MG/DL (2.3-4.5); POTASSIUM 3.8 MMOL/L (3.5-5.1); SODIUM 143 MMOL/L (135-145); TOTAL CARBON DIOXIDE 24.5 MMOL/L (24-32); TOTAL PROTEIN 4.7 G/DL (6.4-8.2); TRIGLYCERIDES 70 MG/DL (20-135); eGFR > 90 ML/MIN
[2017-09-19] MEDS: morphine/NS 5 mg/ml CADD 50 ML IV SCH (21:57)
[2017-09-19] MEDS: LORazepam 2 mg/ml vial IV PRN ×4 (22:03→23:46)
[2017-09-20] MEDS: LORazepam 2 mg/ml vial IV PRN ×13 (00:55→22:14)
[2017-09-20 05:50] VITALS: BP 94/57
[2017-09-20 08:00] VITALS: BP 94/53
[2017-09-20 19:00] VITALS: BP 86/52
[2017-09-21] MEDS: morphine/NS 5 mg/ml CADD 50 ML IV SCH (09:44)
== END 2017-09-21 13:54 | disposition expired | DRG 853 ==
LOC: ER 18:02 → ED HOLD 21:12 → ICU 2S 23:52
PROVIDERS: ADMIT Internal Medicine Critical Care Medicine; ATTEND Internal Medicine Critical Care Medicine
PROC: 5A1955Z Respiratory Ventilation, Greater than 96 Consecutive Hours (ICD-10-PCS; 2017-09-08)
PROC: 30233N1 Transfusion of Nonautologous Red Blood Cells into Peripheral Vein, Percutaneous Approach (ICD-10-PCS; 2017-09-08)
PROC: 04HK33Z Insertion of Infusion Device into Right Femoral Artery, Percutaneous Approach (ICD-10-PCS; 2017-09-08)
PROC: 02HV33Z Insertion of Infusion Device into Superior Vena Cava, Percutaneous Approach (ICD-10-PCS; 2017-09-09)
PROC: 0D1A0Z4 Bypass Jejunum to Cutaneous, Open Approach (ICD-10-PCS; 2017-09-13)
PROC: 0DP60UZ Removal of Feeding Device from Stomach, Open Approach (ICD-10-PCS; 2017-09-13)
PROC: 0DHA0UZ Insertion of Feeding Device into Jejunum, Open Approach (ICD-10-PCS; 2017-09-13)
PROC: 0DQ60ZZ Repair Stomach, Open Approach (ICD-10-PCS; principal; 2017-09-13 10:02)
PROC: 02HV33Z Insertion of Infusion Device into Superior Vena Cava, Percutaneous Approach (ICD-10-PCS; 2017-09-15)
DX: A41.9 Sepsis, unspecified organism (principal); J69.0 Pneumonitis due to inhalation of food and vomit; J96.90 Respiratory failure, unspecified, unspecified whether with hypoxia or hypercapnia; R57.9 Shock, unspecified; G93.49 Other encephalopathy; Z99.11 Dependence on respirator [ventilator] status; K56.2 Volvulus; K92.0 Hematemesis; K94.23 Gastrostomy malfunction; T79.A3XA Traumatic compartment syndrome of abdomen, initial encounter; K56.7 Ileus, unspecified; I42.8 Other cardiomyopathies; N39.0 Urinary tract infection, site not specified; T81.31XA Disruption of external operation (surgical) wound, not elsewhere classified, initial encounter; K94.21 Gastrostomy hemorrhage; J44.9 Chronic obstructive pulmonary disease, unspecified; G70.9 Myoneural disorder, unspecified; F28 Other psychotic disorder not due to a substance or known physiological condition; G83.9 Paralytic syndrome, unspecified; K44.9 Diaphragmatic hernia without obstruction or gangrene; Z51.5 Encounter for palliative care; K66.8 Other specified disorders of peritoneum; Z79.4 Long term (current) use of insulin; Z79.899 Other long term (current) drug therapy
CPT/HCPCS: 36415; 36556; 36569; 36600; 70450; 71010; 71045; 71250; 74018; 74176; 74270; 76937; 80048; 80053; 80202; 81001; 82803; 82810; 82948; 83605; 83735; 83880; 83986; 84100; 84132; 84134; 84145; 84478; 84484; 85018; 85025; 85027; 85610; 85730; 86885; 86900; 86901; 86920; 87040; 87070; 87077; 87088; 87186; 87324; 87449; 93005; 93306; 94002; 94003; 94640; 94760; 95816; 96361; 96365; 96367; 96375; 99291; A4357; A4623; A4649; A6209; A6212; A6213; A6222; A6253; A6257; A6258; A6446; A6449; A7000; A7015; A7526; B4087; C9113; J0282; J0360; J0696; J1720; J1940; J2060; J2250; J2270; J2543; J3370; J3475; J3480; J3490; J7030; J7060; J7120; P9016; P9047; Q9958; Q9963